=== PATIENT | male | born 1995 | race Caucasian/White ===

== ENCOUNTER 2021-10-14 13:19 | Emergency (ER) | payer BC ==
[2021-10-14 13:31] VITALS: RESP 16; TEMP 97.9
[2021-10-14] MEDS ORDERED: LIDOCAINE 1% INJ 10MG/ML (5 ML VIAL-PF) SQ ONE (13:43)
[2021-10-14] MEDS ORDERED: DIPH,PERTUS(ACELL)TETVAC-LF 0.5 ML VIAL IM ONE (13:44)
[2021-10-14] MEDS ORDERED: CEPHALEXIN 500 MG CAP PO STA (13:44)
--- NOTE | 2021-10-14 15:17 | ED ---
Wound/Laceration HPI - General Chief Complaint: Wound/Laceration Stated Complaint: RT Leg injury Time Seen by Provider: 10/14/21 13:33 Source: patient Mode of arrival: ambulatory Limitations: no limitations - History of Present Illness Initial Comments: Patient is a 26-year-old male who presents to the emergency department for evaluation of laceration. Patient states he was getting into a boat when he slipped and landed on a boat cleat. Patient has laceration over the back of the right thigh. Reports minimal pain. Last tetanus unknown. Has no other concerns. - Related Data Home Medications Medication Instructions Recorded Confirmed Levocetirizine Dihydrochloride 5 mg PO DAILY 10/14/21 10/14/21 [Xyzal] Previous Rx's Medication Instructions Recorded Cephalexin [Keflex] 500 mg PO Q6HR 5 Days #20 cap 10/14/21 Allergies Allergy/AdvReac Type Severity Reaction Status Date / Time No Known Allergies Allergy Verified 10/14/21 14:36 Review of Systems ROS Statement: Those systems with pertinent positive or pertinent negative responses have been documented in the HPI. ROS Other: All systems not noted in ROS Statement are negative. Past Medical History Past Medical History: No Reported History History of Any Multi-Drug Resistant Organisms: None Reported Additional Past Surgical History / Comment(s): arm surgery (left) Past Psychological History: No Psychological Hx Reported Smoking Status: Never smoker Past Alcohol Use History: Occasional Past Drug Use History: None Reported General Exam Limitations: no limitations General appearance: alert Head exam: Present: atraumatic, normocephalic, normal inspection Eye exam: Present: normal appearance, PERRL, EOMI. Absent: scleral icterus, conjunctival injection, periorbital swelling Respiratory exam: Present: normal lung sounds bilaterally. Absent: respiratory distress, wheezes, rales, rhonchi, stridor Cardiovascular Exam: Present: regular rate, normal rhythm, normal heart sounds. Absent: systolic murmur, diastolic murmur, rubs, gallop, clicks Extremities exam: Present: full ROM, normal capillary refill, other (6 cm laceration over right posterior thigh ) Neurological exam: Present: alert, oriented X3, CN II-XII intact Psychiatric exam: Present: normal affect, normal mood Skin exam: Present: warm, dry, intact, normal color. Absent: rash Course Vital Signs 10/14/21 10/14/21 13:27 15:23 Temperature 97.9 F Pulse Rate 74 70 Respiratory 16 16 Rate Blood Pressure 117/80 140/88 O2 Sat by Pulse 96 97 Oximetry Procedures - Laceration Laceration #1 Consent Obtained: verbal consent Indication: laceration Site: lower extremity (right posterior thigh) Description: linear Depth: simple, single layer Anesthesia Technique: local infiltration Pre-repair: wound explored, irrigated extensively Type of Sutures: nylon Size of Sutures: 4-0 Number of Sutures: 9 Technique: simple, interrupted Patient Tolerated Procedure: well, no complications Medical Decision Making - Medical Decision Making This is a 26-year-old male who presents to the emergency department for evaluati on of laceration. Thorough history and examination were performed. There is a laceration over the right posterior thigh approximately 6 cm. The wound was irrigated extensively. It was well approximated with 9 sutures. Patient tolerated the procedure well without complication. Patient will be discharged with Keflex. Wound care education discussed in detail. Patient to return for suture removal in 12-14 days. Return parameters discussed. He verbalizes understanding and is agreeable to this plan. Dr. Brand is my attending. Disposition Clinical Impression: Laceration Disposition: HOME SELF-CARE Condition: Good Instructions (If sedation given, give patient instructions): Care For Your Stitches (ED), Laceration (ED) Additional Instructions: Keep wound clean, dry, and uncovered. You can wash with a mild soap. Take antibiotic as directed. Take Tylenol or Motrin for pain. Return for suture removal in 12-14 days. Report back to the emergency department if you experience new, concerning, or worsening symptoms. Prescriptions: Cephalexin [Keflex] 500 mg PO Q6HR 5 Days #20 cap Is patient prescribed a controlled substance at d/c from ED?: No Referrals: Winston Rivero DO [Primary Care Provider] - 1-2 days Time of Disposition: 15:17
[2021-10-14 15:24] VITALS: BP 140/88; PULSE 70
== END 2021-10-14 15:24 | disposition home or self-care (01) ==
LOC: EC 13:19
DX: S71.111A Laceration without foreign body, right thigh, initial encounter (principal); Z23 Encounter for immunization; V93.39XA Fall on board unspecified watercraft, initial encounter
CPT/HCPCS: 90715; 12002; 90471; 99283; J2001